=== PATIENT | male | born 1950 | race Caucasian/White ===

== ENCOUNTER 2022-12-19 13:28 | Observation (INO) ==
--- NOTE | 2022-12-19 13:43 | EKG ---
Test Reason : chest pain Blood Pressure : */* mmHG Vent. Rate : 57 BPM Atrial Rate : 57 BPM P-R Int : 146 ms QRS Dur : 90 ms QT Int : 442 ms P-R-T Axes : 17 13 47 degrees QTc Int : 430 ms Sinus bradycardia Otherwise normal ECG No previous ECGs available Confirmed by Dontrell Mendoza ([id number]) on 12/20/2022 8:35:03 AM Referred By: Confirmed By: Dontrell Mendoza
--- NOTE | 2022-12-19 14:16 | DR.CP ---
HPI Time Seen Time Seen by Provider: 12/19/22 14:15 PCP Primary Care Physician: LADONNA Complaint Chief Complaint Doctor Comments: RUQ PAIN WITH NAUSEA STARTING 7 HOURS AGO. Chief Complaint:: PT C/O OF RUQ PAIN THAT RADIATES AROUND TO HIS ABD STATES IT COMES AND GOES AND HE HAS SOME NAUSEOUS WITH IT. PT DENIES VOMITING OR DIARRHEA Self Treatment fo Chief Complaint: ZOFRAN COVID-19 Coronavirus risk:travel/contact w/high risk person: No Has patient experienced Coronavirus symptoms: No Source History Provided: Patient Mode of Arrival Mode of Arrival: Ambulatory Timing Onset of Chief Complaint: 12/18/22 Location Chest Pain Radiation Location: None Associated Signs and Symptoms Associated Signs and Symptoms: Abdominal Pain PMH PMH Past Medical History: Yes Past Medical History: Diabetes Past Medical History Comment: CHOLESTEROL Past Surgical History: Yes Surgical History: Angioplasty/Stents and CABG/Valve Surgery Family History History of Family Medical Conditions: Yes Family Medical History: Diabetes Mellitus Social History Does patient currently use any type of tobacco product: No Have you used tobacco products in the last 12 months: No Type of Tobacco Use: None Does any household member use tobacco: No Alcohol Use: None Do you use any recreational Drugs:: No Lives With: Spouse Lives Where: Home Travel Risk Coronavirus risk:travel/contact w/high risk person: No Has patient experienced Coronavirus symptoms: No Infectious screening In the last 2 months have you had wt loss of >10#?: NO Have you had fever, night sweats or hemotysis?: No Have you traveled outside the country in the last 6 months?: No Isolation: Standard ROS Review of Systems Constitutional: Other (RUQ PAIN WITH) Eyes: No Symptoms Reported ENTM: No Symptoms Reported Respiratoy: No Symptoms Reported Cardiovascular: No Symptoms Reported Gastrointestinal/Abdominal: Abdominal Pain (RUQ) and Nausea Genitourinary: No Symptoms Reported Neurological: No Symptoms Reported Musculoskeletal: No Symptoms Reported Integumentary: No Symptoms Reported Hematologic/Lymphatic: No Symptoms Reported Endocrine: No Symptoms Reported Psychiatric: No Symptoms Reported PE Vitals Vitals: Temperature 98.6 F Pulse Rate 64 Respiratory Rate 20 Blood Pressure 147/64 O2 Sat by Pulse Oximetry 96 General Limitations: No Limitations General Appearance: Alert and In Distress (MODERATE DISTRESS) Head Head Exam: Normal Inspection and Atraumatic Eyes Eye exam: Normal Appearance, PERRL and EOMI ENT ENT Exam: Normal Exam, Normal Oropharynx and Normal External Ear Exam Chest Chest Inspection: Normal Inspection Respiratory Respiratory Exam: Normal Lung Sounds Bilat Respiratory Exam: Bilateral: Clear to Auscultation Cardiovascular Cardiovascular Exam: Regular Rate and Normal Rhythm Abdominal Exam Abdominal Exam: Normal Bowel Sounds and Tenderness (RUQ) Abdominal Tenderness: RUQ Extremities Extremities Exam: Normal Inspection Back Back Exam: Normal Inspection Neurologic Neurological Exam: Alert, Oriented X3 and CN II-XII Intact Psychiatric Psychiatric Exam: Normal Affect, Normal Mood and Depressed Skin Skin Exam: Warm, Dry and Intact MDM Differential Diagnosis Differential Diagnosis: Cholelithasis (CHOLECYSTITIS) COURSE Treatment Treatment: PATIENT WAS GIVEN BOLUS OF NACL AND ZOFRAN 4MG IV AND DEMEROL 50MG IV FOR PAIN. THE ULTRASOUND OF RUQ SHOWED CHOLELITHIASIS AND CHOLECYSTITIS, WALL THICKENING AND POSITIVE MURPHYU SIGN. THE PATIENT WAS TOLD THE RESULTS OF THE FINDINGS ,. CARDIAC HAIDER WAS NEGATIVE.SPOKE TO DR DRAKE AT 1610 AND HE WILL ADMIT THE PATIENT FOR SURGERY TOMORROW. UTILIZATION REVIEW STATED TO REFER TO OBSERVATION. ROR Labs Reviewed Laboratory Results Reviewed?: Yes Result Diagrams: 12/19/22 13:49 12/19/22 13:49 Laboratory: WBC 9.9 X10^3/uL (3.6-10.0) 12/19/22 13:49 RBC 4.62 X10^6/uL (4.7-6.0) L 12/19/22 13:49 Hgb 11.4 g/dL (13.5-18.0) L 12/19/22 13:49 Hct 35.4 % (42.0-54.0) L 12/19/22 13:49 MCV 76.6 fL (80.0-100.0) L 12/19/22 13:49 MCH 24.6 pg (27.0-34.0) L 12/19/22 13:49 MCHC 32.1 g/dL (33.0-35.0) L 12/19/22 13:49 RDW 17.7 % (11.6-16.5) H 12/19/22 13:49 Plt Count 237 X10^3/uL (150.0-450.0) 12/19/22 13:49 MPV 7.0 fL (7.4-11.0) L 12/19/22 13:49 Neut % (Auto) 80.6 % (42.0-75.0) H 12/19/22 13:49 Lymph % (Auto) 13.9 % (21.0-51.0) L 12/19/22 13:49 Traverse % (Auto) 4.9 % (0.0-13.0) 12/19/22 13:49 Eos % (Auto) 0.3 % (0.9-2.9) L 12/19/22 13:49 Baso % (Auto) 0.3 % (0.2-1.0) 12/19/22 13:49 Neut # (Auto) 8.0 x10^3/uL (2.2-4.8) H 12/19/22 13:49 Lymph # (Auto) 1.4 X10^3/uL (1.3-2.9) 12/19/22 13:49 Traverse # (Auto) 0.5 x10^3/uL (0.3-0.8) 12/19/22 13:49 Eos # (Auto) 0.0 x10^3/uL (0.0-0.2) 12/19/22 13:49 Baso # (Auto) 0.0 X10^3/uL (0.0-0.1) 12/19/22 13:49 Absolute Nucleated RBC 0.1 /100WBC 12/19/22 13:49 Sodium 132 mmol/L (136-145) L 12/19/22 13:49 Corrected Sodium 133 mmol/L (136-145) L 12/19/22 13:49 Potassium 4.0 mmol/L (3.5-5.1) 12/19/22 13:49 Chloride 97 mmol/L (98-107) L 12/19/22 13:49 Carbon Dioxide 26.1 mmol/L (21-32) 12/19/22 13:49 BUN 15 mg/dL (7-18) 12/19/22 13:49 Creatinine 0.67 mg/dL (0.70-1.30) L 12/19/22 13:49 Est GFR (MDRD) Af Amer > 60 (>60) 12/19/22 13:49 Est GFR (MDRD) Non-Af > 60 (>60) 12/19/22 13:49 Glucose 143 mg/dL (65-99) H 12/19/22 13:49 Calcium 8.4 mg/dL (8.5-10.1) L 12/19/22 13:49 Corrected Calcium TNP 12/19/22 13:49 Total Bilirubin 0.30 mg/dL (0.2-1.0) 12/19/22 13:49 AST 29 Units/L (15-37) 12/19/22 13:49 ALT 47 Units/L (12-78) 12/19/22 13:49 Alkaline Phosphatase 63 Units/L (46-116) 12/19/22 13:49 Creatine Kinase 76 Units/L (39-308) 12/19/22 13:49 Troponin I High Sens 4.8 ng/L (4.0-60.0) 12/19/22 13:49 Total Protein 7.1 g/dL (6.4-8.2) 12/19/22 13:49 Albumin 4.1 g/dL (3.4-5.0) 12/19/22 13:49 Globulin 3.0 g/dL (2.5-4.5) 12/19/22 13:49 Albumin/Globulin Ratio 1.4 Ratio (1.1-2.1) 12/19/22 13:49 Amylase 65 Units/L (25-115) 12/19/22 13:49 Lipase 197 Units/L (73-393) 12/19/22 13:49 Opioid Opioid Risk Tool Age (John box if 16-45): No History of Preadolescent Sexual Abuse: No Total: 0 Total Score Risk Category: Low Risk Copyright: Sergio HARDWICK predicting aberrant behaviors Discharge Plan Diagnosis Discharge Problem: Acute cholecystitis Discharge Plan Patient Disposition: HOME, SELF-CARE Condition: Stable Prescriptions: No Action atorvastatin 40 mg Tablet 40 mg PO HS metformin 500 mg Tablet 500 mg PO BID clopidogrel 75 mg tablet 1 tab PO QDAY omeprazole 40 mg Capsule,Delayed Release(Dr/Ec) 40 mg PO DAILY aspirin [Aspir-81] 81 mg Tablet,Delayed Release (Dr/Ec) 81 mg PO DAILY primidone 250 mg tablet 1.5 tab PO BID metoprolol tartrate 50 mg tablet 0.5 tab PO QDAY cyclobenzaprine 5 mg tablet 1 tab PO TID PRN topiramate 50 mg Tablet 50 mg PO BID fenofibrate 160 mg Tablet 160 mg PO DAILY [id number]-[id number]-dha-fish oil-flax-E [id number] el-fa-xg-unit Capsule 180 cap PO BID Otezla 30 mg Tablet 30 mg PO BID Health Concerns: Post Hospitalization: new medications and changes needed to prevent readmission or further decline. Pt educated and given instructions on all concerns. Plan of Treatment: Continue with present treatment and follow up plan. Pt is to keep follow up appointment as instructed and take medications as ordered. Orders to Discharge Patient Discharge Orders: Discharge (Routine); Ordered 12/19/22 Ordered By: Mannie Kevin Transfer (Routine); Ordered 12/19/22 Ordered By: Mannie Kevin Follow ups/Referrals Follow ups/Referrals: BEATRIZ DOUGHERTY [Primary Care Provider] - 3 days
[2022-12-19] MEDS ORDERED: NS IRRIG 3000 ML + EPI 1 MG IR ONE (14:18)
[2022-12-19 14:23] LABS: BASOPHILS % (AUTO) 0.3 % (0.2-1.0); EOSINOPHILS % (AUTO) 0.3 % (0.9-2.9); HEMATOCRIT 35.4 % (42.0-54.0); HEMOGLOBIN 11.4 g/dL (13.5-18.0); LYMPHOCYTES # (AUTO) 1.4 X10^3/uL (1.3-2.9); LYMPHOCYTES % (AUTO) 13.9 % (21.0-51.0); MEAN CORPUSCULAR HEMOGLOBIN 24.6 pg (27.0-34.0); MEAN CORPUSCULAR HGB CONC 32.1 g/dL (33.0-35.0); MEAN CORPUSCULAR VOLUME 76.6 fL (80.0-100.0); MONOCYTES # (AUTO) 0.5 x10^3/uL (0.3-0.8); MONOCYTES % (AUTO) 4.9 % (0.0-13.0); NEUTROPHILS % (AUTO) 80.6 % (42.0-75.0); RED BLOOD COUNT 4.62 X10^6/uL (4.7-6.0); RED CELL DISTRIBUTION WIDTH 17.7 % (11.6-16.5); WHITE BLOOD COUNT 9.9 X10^3/uL (3.6-10.0)
--- NOTE | 2022-12-19 14:31 | RAD ---
HISTORYChest painSTUDYChest AP portableCOMPARISONNoneFINDINGSPatient is status post median sternotomy and CABG. Heart size is normal. Jacklyn are normal. Lung green are clear. No pleural effusions are identified. Bony thorax is unremarkable.IMPRESSIONNo significant abnormality identifiedElectronically signed by: TEQUILA TRINIDAD (Dec 19, 2022 14:29:54)
[2022-12-19 14:34] LABS: AMYLASE 65 Units/L (25-115); LIPASE 197 Units/L (73-393)
--- NOTE | 2022-12-19 15:18 | US ---
HISTORYCP, RUQ PAINSTUDYGALL BLADDERCOMPARISONNoneTECHNIQUEGallbladde r ultrasound.FINDINGSLiver appears mildly echogenic. The right lobe of liver measures up to 14.5 cm. The portal and hepatic veins are patent with appropriate flow directionality. The gallbladder demonstrates multiple cholelithiasis, wall thickening measuring just under 4 mm, and positive Vinson sign according to technologist note. Common duct is normal at 4 mm. The right kidney measures 10.6 x 5.5 x 5.5 cm. No obvious renal mass, stone, or hydronephrosis. IVC appears patent proximally. Visualized pancreas appears normal.IMPRESSIONCholelithiasis, wall thickening, and positive Vinson sign is consistent with acute cholecystitis in the appropriate clinical setting. Consider HIDA scan for further evaluation as clinically warranted.Echogenic liver consistent with parenchymal disease such as steatosis.Electronically signed by: Adam Tristan (Dec 19, 2022 15:17:34)
[2022-12-19] MEDS ORDERED: DEMEROL INJ IVP ONE (15:30)
[2022-12-19] MEDS ORDERED: ZOFRAN INJ 4 MG VIAL IVP ONE (15:30)
[2022-12-19] MEDS ORDERED: DEMEROL INJ ONE (15:32)
[2022-12-19] MEDS ORDERED: ZOFRAN INJ 4 MG VIAL ONE (15:33)
[2022-12-19 15:46] LABS: ALANINE AMINOTRANSFERASE 47 Units/L (12-78); ALBUMIN 4.1 g/dL (3.4-5.0); ALKALINE PHOSPHATASE 63 Units/L (46-116); ASPARTATE AMINO TRANSFERASE 29 Units/L (15-37); BLOOD UREA NITROGEN 15 mg/dL (7-18); CALCIUM 8.4 mg/dL (8.5-10.1); CARBON DIOXIDE 26.1 mmol/L (21-32); CHLORIDE 97 mmol/L (98-107); COR NA(FOR HYPERGLY) 133 mmol/L (136-145); CREATINE KINASE 76 Units/L (39-308); CREATININE 0.67 mg/dL (0.70-1.30); SODIUM 132 mmol/L (136-145); TOTAL PROTEIN 7.1 g/dL (6.4-8.2); eGFR NON BLACK RACES > 60 (>60)
[2022-12-19 18:53] VITALS: BMI 11.6
[2022-12-19] MEDS ORDERED: LOPRESSOR TAB 25 MG PO ONE (22:54)
[2022-12-19] MEDS ORDERED: FLEXERIL TAB 10 MG PO PRN (22:54)
[2022-12-19] MEDS ORDERED: NovoLIN R (or HumuLIN R) SC PRN (22:54)
[2022-12-19] MEDS: LR 1,000 ML IV 1,000 ML IV SCH (23:37)
--- NOTE | 2022-12-19 23:37 | DR.H&P ---
H&P History & Physical for Day of: H&P Date: 12/19/22 Chief Complaint Chief Complaint: 72 yo male with 1 day history of RUQ pain radiating into his back. Evaluated in the ER and ultrasound consistent with cholelithiasis and acute cholecystitis with gallbladder wall thickening, Allergies Allergies Allergy/AdvReac Type Severity Reaction Status Date / Time No Known Allergies Allergy Verified 12/19/22 13:43 History of Present Illness History of Present Illness: See above. History of CABG many years ago and had 2 coronary stents placed 2016 for shortness of breath. Hx of diabetes . Followed by cardiology and has recent stress test reported as negative . Denies shortness of breath or chest pain Past Medical History Past Medical History: Coronary Artery Disease ( see H&P above ), Diabetes and GERD Additional Medical History: hypercholesterolemia Past Surgical History Surgical History: Angioplasty/Stents and CABG/Valve Surgery Family History Family Medical History: Diabetes Mellitus, MA and Heart Failure Social History Does patient currently use any type of tobacco product: No Have you used tobacco products in the last 12 months: No Type of Tobacco Use: None Does any household member use tobacco: No Alcohol Use: None Drug Use: None Medications Home Medications: No Known Allergies Allergy (Verified 12/19/22 13:43) CONTINUE taking the following medications apremilast 30 mg tablet (Otezla) 30 mg PO BID 12/19/22 [History] aspirin 81 mg tablet,delayed release 81 mg PO DAILY 12/19/22 [History] atorvastatin 40 mg tablet 40 mg PO HS 12/19/22 [History] clopidogrel 75 mg tablet 1 tab PO QDAY 12/19/22 [History] cyclobenzaprine 5 mg tablet 1 tab PO TID PRN 12/19/22 [History] fenofibrate 160 mg tablet 160 mg PO DAILY 12/19/22 [History] metformin 500 mg tablet 500 mg PO BID 12/19/22 [History] metoprolol tartrate 50 mg tablet 0.5 tab PO QDAY 12/19/22 [History] omeg3-epa 150 mg-dha 100 mg-fish oil-flaxseed oil 333 mg-E 61 unit cap 180 cap PO BID 12/19/22 [History] omeprazole 40 mg capsule,delayed release 40 mg PO DAILY 12/19/22 [History] primidone 250 mg tablet 1.5 tab PO BID 12/19/22 [History] topiramate 50 mg tablet 50 mg PO BID 12/19/22 [History] Labs Result Diagrams: 12/19/22 13:49 12/19/22 13:49 Labs: Laboratory WBC 9.9 X10^3/uL (3.6-10.0) 12/19/22 13:49 RBC 4.62 X10^6/uL (4.7-6.0) L 12/19/22 13:49 Hgb 11.4 g/dL (13.5-18.0) L 12/19/22 13:49 Hct 35.4 % (42.0-54.0) L 12/19/22 13:49 MCV 76.6 fL (80.0-100.0) L 12/19/22 13:49 MCH 24.6 pg (27.0-34.0) L 12/19/22 13:49 MCHC 32.1 g/dL (33.0-35.0) L 12/19/22 13:49 RDW 17.7 % (11.6-16.5) H 12/19/22 13:49 Plt Count 237 X10^3/uL (150.0-450.0) 12/19/22 13:49 MPV 7.0 fL (7.4-11.0) L 12/19/22 13:49 Neut % (Auto) 80.6 % (42.0-75.0) H 12/19/22 13:49 Lymph % (Auto) 13.9 % (21.0-51.0) L 12/19/22 13:49 Dare % (Auto) 4.9 % (0.0-13.0) 12/19/22 13:49 Eos % (Auto) 0.3 % (0.9-2.9) L 12/19/22 13:49 Baso % (Auto) 0.3 % (0.2-1.0) 12/19/22 13:49 Neut # (Auto) 8.0 x10^3/uL (2.2-4.8) H 12/19/22 13:49 Lymph # (Auto) 1.4 X10^3/uL (1.3-2.9) 12/19/22 13:49 Dare # (Auto) 0.5 x10^3/uL (0.3-0.8) 12/19/22 13:49 Eos # (Auto) 0.0 x10^3/uL (0.0-0.2) 12/19/22 13:49 Baso # (Auto) 0.0 X10^3/uL (0.0-0.1) 12/19/22 13:49 Absolute Nucleated RBC 0.1 /100WBC 12/19/22 13:49 Sodium 132 mmol/L (136-145) L 12/19/22 13:49 Corrected Sodium 133 mmol/L (136-145) L 12/19/22 13:49 Potassium 4.0 mmol/L (3.5-5.1) 12/19/22 13:49 Chloride 97 mmol/L (98-107) L 12/19/22 13:49 Carbon Dioxide 26.1 mmol/L (21-32) 12/19/22 13:49 BUN 15 mg/dL (7-18) 12/19/22 13:49 Creatinine 0.67 mg/dL (0.70-1.30) L 12/19/22 13:49 Est GFR (MDRD) Af Amer > 60 (>60) 12/19/22 13:49 Est GFR (MDRD) Non-Af > 60 (>60) 12/19/22 13:49 Glucose 143 mg/dL (65-99) H 12/19/22 13:49 POC Glucose (mg/dL) 108 mg/dL (65-99) H 12/19/22 19:33 Calcium 8.4 mg/dL (8.5-10.1) L 12/19/22 13:49 Corrected Calcium TNP 12/19/22 13:49 Total Bilirubin 0.30 mg/dL (0.2-1.0) 12/19/22 13:49 AST 29 Units/L (15-37) 12/19/22 13:49 ALT 47 Units/L (12-78) 12/19/22 13:49 Alkaline Phosphatase 63 Units/L (46-116) 12/19/22 13:49 Creatine Kinase 76 Units/L (39-308) 12/19/22 13:49 Troponin I High Sens 4.8 ng/L (4.0-60.0) 12/19/22 13:49 Total Protein 7.1 g/dL (6.4-8.2) 12/19/22 13:49 Albumin 4.1 g/dL (3.4-5.0) 12/19/22 13:49 Globulin 3.0 g/dL (2.5-4.5) 12/19/22 13:49 Albumin/Globulin Ratio 1.4 Ratio (1.1-2.1) 12/19/22 13:49 Amylase 65 Units/L (25-115) 12/19/22 13:49 Lipase 197 Units/L (73-393) 12/19/22 13:49 Review of Systems Constitutional: See HPI Eyes: No Symptoms Reported ENT: No Symptoms Reported Respiratory: No Symptoms Reported Cardiovascular: No Symptoms Reported Gastrointestinal: See HPI Genitourinary: No Symptoms Reported Musculoskeletal: No Symptoms Reported Skin: No Symptoms Reported Neurological: No Symptoms Reported Physical Exam Vital Signs: Temperature 98.7 F Pulse Rate [Left Radial] 64 Pulse Rate 57 Respiratory Rate 18 Blood Pressure [Left Arm] 136/63 Blood Pressure 147/64 O2 Sat by Pulse Oximetry 97 Oriented: Normal, Time, Person and Place Eyes: Normal Ear: Normal Nose: Normal Throat: Normal Respiratory: Clear Throughout Cardiovascular: Normal and Other (denies chest pain) : Normal Auscultation: Bowel Sounds: Normal Palpation: Normal Tenderness: RUQ (mild) Skin: Normal Musculoskeletal: Normal Psychiatric: Normal Mood Description: Calm Affect: Normal Speech Pattern: Clear Assessment/Plan (1) Acute cholecystitis: Status: Acute Plan: IV antibiotics, plan laparoscopic cholecystectomy in AM. Risks and benefits discussed , including risk of bleeding, infection and possible common bile duct injury( 1 in 1999 in my hands) Small possibility of converting to open procedure discussed with the patient . Patient agrees to proceed. (2) Diabetes 1.5, managed as type 2: Status: Acute Plan: usual medications (3) Hypercholesteremia: Status: Acute Plan: usual medications (4) GE reflux: Narrative Support Text: home treatment Status: Acute
[2022-12-19] MEDS: LIPITOR TAB 40 MG PO SCH (23:38)
[2022-12-19] MEDS: TOPAMAX PO SCH (23:38)
[2022-12-19] MEDS: MYSOLINE PO SCH (23:38)
[2022-12-20] MEDS ORDERED: LEVAQUIN PREMIX IV 750 MG 750 MG/150 ML BAG IV ONE (01:00)
[2022-12-20 06:27] LABS: BASOPHILS % (AUTO) 0.3 % (0.2-1.0); EOSINOPHILS # (AUTO) 0.1 x10^3/uL (0.0-0.2); HEMATOCRIT 34.9 % (42.0-54.0); HEMOGLOBIN 11.3 g/dL (13.5-18.0); LYMPHOCYTES # (AUTO) 1.6 X10^3/uL (1.3-2.9); LYMPHOCYTES % (AUTO) 19.7 % (21.0-51.0); MEAN CORPUSCULAR HEMOGLOBIN 24.6 pg (27.0-34.0); MEAN CORPUSCULAR HGB CONC 32.3 g/dL (33.0-35.0); MEAN CORPUSCULAR VOLUME 76.2 fL (80.0-100.0); MEAN PLATELET VOLUME 7.1 fL (7.4-11.0); MONOCYTES # (AUTO) 0.8 x10^3/uL (0.3-0.8); MONOCYTES % (AUTO) 9.7 % (0.0-13.0); NEUTROPHILS # (AUTO) 5.5 x10^3/uL (2.2-4.8); NEUTROPHILS % (AUTO) 69.3 % (42.0-75.0); RED BLOOD COUNT 4.58 X10^6/uL (4.7-6.0); RED CELL DISTRIBUTION WIDTH 17.7 % (11.6-16.5)
[2022-12-20 06:53] LABS: ALANINE AMINOTRANSFERASE 40 Units/L (12-78); ALBUMIN 3.6 g/dL (3.4-5.0); ALKALINE PHOSPHATASE 57 Units/L (46-116); ASPARTATE AMINO TRANSFERASE 25 Units/L (15-37); BLOOD UREA NITROGEN 11 mg/dL (7-18); CALCIUM 8.4 mg/dL (8.5-10.1); CHLORIDE 102 mmol/L (98-107); COR NA(FOR HYPERGLY) 136 mmol/L (136-145); CREATININE 0.61 mg/dL (0.70-1.30); SODIUM 136 mmol/L (136-145); TOTAL PROTEIN 6.6 g/dL (6.4-8.2); eGFR NON BLACK RACES > 60 (>60)
[2022-12-20] MEDS: TOPAMAX PO SCH ×2 (08:09→20:46)
[2022-12-20] MEDS: MYSOLINE PO SCH ×2 (08:09→20:45)
[2022-12-20] MEDS ORDERED: LEVAQUIN PREMIX IV 500 MG 500 MG/100 ML BAG IV SCH (09:00)
[2022-12-20] MEDS ORDERED: BACTROBAN TOPICAL OINT ONE (09:16)
[2022-12-20] MEDS ORDERED: ANCEF VIAL 1 GRAM ONE (09:26)
[2022-12-20] MEDS ORDERED: NS 1,000 ML IV 1,000 ML ONE (09:26)
[2022-12-20] MEDS ORDERED: NS 100 ML IV 100 ML ONE (09:27)
[2022-12-20] MEDS ORDERED: MARCAINE 0.25% INJ ONE (09:54)
[2022-12-20] MEDS ORDERED: BARHEMSYS INJ IVP PRN (09:56)
[2022-12-20] MEDS ORDERED: ZOFRAN INJ 4 MG VIAL IVP PRN (09:56)
[2022-12-20] MEDS ORDERED: BENADRYL INJ 50 MG VIAL IVP PRN (09:56)
[2022-12-20] MEDS ORDERED: MAGNESIUM SULFATE 50% INJ VIAL ONE (10:12)
[2022-12-20] MEDS ORDERED: DIPRIVAN VIAL 20 ML ONE (10:12)
[2022-12-20] MEDS ORDERED: NEO-SYNEPHRINE INJ ONE (10:12)
[2022-12-20] MEDS ORDERED: ZEMURON 100 MG VIAL ONE (10:12)
[2022-12-20] MEDS ORDERED: QUELICIN (OR ANECTINE) ONE (10:12)
[2022-12-20] MEDS ORDERED: FENTANYL VIAL INJ 100 mcg ONE (10:15)
[2022-12-20] MEDS ORDERED: KETAMINE HCL ONE (10:23)
[2022-12-20] MEDS ORDERED: SUPRANE ONE (10:23)
[2022-12-20] MEDS ORDERED: BRIDION ONE (11:01)
--- NOTE | 2022-12-20 11:21 | OR.IMMED ---
IMMEDIATE POST-OP NOTE Immediate Post-Op Note Pre-Op Diagnosis: cholelithiasis and acute cholecystitis Post-Op Diagnosis: kristie Procedure: laparoscopic cholecystectomy Description of Procedure: see operative summary Surgeon/[employer] Associate: Maricruz Findings: as above Specimens Removed: gallbladder Estimated Blood Loss: < 50 cc Drains: Pranav Ravi (#10) Complications: none Post Hospital Plans and Medications: to PACU then floor , resume diet, D/C IV Levaquin, begin po Cipro BID
[2022-12-20] MEDS ORDERED: DILAUDID INJ ONE (11:38)
[2022-12-20] MEDS: DILAUDID INJ IVP PRN ×4 (11:39→12:13)
[2022-12-20] MEDS: PROTONIX TAB 40 MG PO SCH (12:31)
[2022-12-20] MEDS: TRICOR TAB 160 MG PO SCH (12:32)
[2022-12-20] MEDS: PERCOCET TAB 5/325 MG PO PRN ×3 (14:20→22:43)
[2022-12-20] MEDS ORDERED: DILAUDID INJ IVP ONE (16:10)
[2022-12-20] MEDS: LR 1,000 ML IV 1,000 ML IV SCH (16:35)
[2022-12-20] MEDS ORDERED: GLUCOPHAGE ONE (17:23)
[2022-12-20] MEDS: GLUCOPHAGE PO SCH (17:42)
--- NOTE | 2022-12-20 19:39 | DR.OPNOTE ---
OP NOTE Pre-Op Diagnosis: cholelithiasis and acute cholecystitis Post-Op Diagnosis: same Procedure Date Date Of Procedure: 12/20/22 Procedure: PROCEDURE: LAPAROSCOPIC CHOLECYSTECTOMY NARRARTIVE : Patient was taken to the operative suite and placed in the supine position. General endotracheal anesthesia induced . The entire abdomen prepped and draped in sterile fashion. Time out for the procedure obtained. 3 cm curvilinear incision made below the umbilicus in the midline and dissection carried down to the mid line fascia which was opened with a 15 knife blade after placing holding pictures of 0 Vicryl on either side of the mid line fascia . The peritoneum opened with Metzenbaum scissors. The abdominal cavity entered and Fatimah cannula placed and secured with the holding sutures after inflating the distal bulb. Abdomen insufflated to 15 mm of mercury with carbon dioxide. 5 mm incisions made times two to the right costal margin. Five mm trocars placed though both of these under direct vision. A 5 mm trocar was placed in the epigastrium . The gallbladder was inflamed and edematous . It was decompressed with a needle. The gallbladder was grasped at the fundus and the infundibulum and dissection carried out in Calot's triangle . We defined both the cystic duct and cystic artery , i.e. the critical view of safety . Both were clipped proximally and distally and divided . The gallbladder peritoneum was incised with electrocautery removing gallbladder from the liver bed. Gallbladder placed in the specimen bag and brought out through the umbilical incision site. Umbilical trocar replaced . The abdomen irrigated and suctioned free. Surgicel placed in the liver bed. # 10 flat Pranav-Ravi drain placed through the right lateral most 5 mm trocar site and into Lopez's pouch . Drain secured to the skin with a 2-0 silk suture ligature . The fascia of the initial incision closed with interrupted 0 Vicryl sutures . A total of 20 ccs of 0.5% Marcaine distributed between 4 laparoscopic incisions and Steri strips applied. Patient taken to PACU room in good condition after extubation. Type of Anesthesia: General Anesthetic w/ETT Findings: as above , inflammed and edematous gallbladder Specimen/Pathology: gallbladder Type of Fluids Used:: Lactated Ringers EBL: < 50 cc Complications:: none Needle/Sponge Count:: correct Disposition/Condition: Pt. tolerated procedure without difficulty. Extubated in the OR and taken to PACU in stable condition.
[2022-12-20] MEDS: LIPITOR TAB 40 MG PO SCH (20:45)
[2022-12-20] MEDS: CIPRO TAB 500 MG PO SCH (20:45)
[2022-12-20] MEDS ORDERED: RESTORIL CAP 15 MG PO PRN (22:44)
[2022-12-21] MEDS: LR 1,000 ML IV 1,000 ML IV SCH ×3 (01:14→15:13)
[2022-12-21] MEDS: PERCOCET TAB 5/325 MG PO PRN ×4 (03:50→16:00)
[2022-12-21] MEDS ORDERED: GLUCOPHAGE ONE (05:44)
[2022-12-21] MEDS: GLUCOPHAGE PO SCH (06:01)
[2022-12-21 06:48] LABS: SODIUM 130 mmol/L (136-145); eGFR NON BLACK RACES > 60 (>60)
[2022-12-21 07:25] LABS: BASOPHILS # (AUTO) 0.2 X10^3/uL (0.0-0.1); BASOPHILS % (AUTO) 2.4 % (0.2-1.0); EOSINOPHILS # (AUTO) 0.1 x10^3/uL (0.0-0.2); EOSINOPHILS % (AUTO) 1.2 % (0.9-2.9); HEMATOCRIT 32.9 % (42.0-54.0); HEMOGLOBIN 10.4 g/dL (13.5-18.0); LYMPHOCYTES % (AUTO) 11.8 % (21.0-51.0); MEAN CORPUSCULAR HEMOGLOBIN 24.6 pg (27.0-34.0); MEAN CORPUSCULAR HGB CONC 31.7 g/dL (33.0-35.0); MEAN CORPUSCULAR VOLUME 77.7 fL (80.0-100.0); MEAN PLATELET VOLUME 6.9 fL (7.4-11.0); MONOCYTES # (AUTO) 0.7 x10^3/uL (0.3-0.8); MONOCYTES % (AUTO) 7.9 % (0.0-13.0); NEUTROPHILS # (AUTO) 6.8 x10^3/uL (2.2-4.8); NEUTROPHILS % (AUTO) 76.7 % (42.0-75.0); RED BLOOD COUNT 4.24 X10^6/uL (4.7-6.0); RED CELL DISTRIBUTION WIDTH 17.4 % (11.6-16.5); WHITE BLOOD COUNT 8.9 X10^3/uL (3.6-10.0)
[2022-12-21 07:33] LABS: ALANINE AMINOTRANSFERASE 162 Units/L (12-78); ALBUMIN 3.5 g/dL (3.4-5.0); ALKALINE PHOSPHATASE 67 Units/L (46-116); ASPARTATE AMINO TRANSFERASE 174 Units/L (15-37); BLOOD UREA NITROGEN 7 mg/dL (7-18); CALCIUM 8.1 mg/dL (8.5-10.1); CARBON DIOXIDE 28.3 mmol/L (21-32); CHLORIDE 95 mmol/L (98-107); COR NA(FOR HYPERGLY) 131 mmol/L (136-145); CREATININE 0.74 mg/dL (0.70-1.30); TOTAL PROTEIN 6.3 g/dL (6.4-8.2)
[2022-12-21] MEDS: MYSOLINE PO SCH (08:12)
[2022-12-21] MEDS: CIPRO TAB 500 MG PO SCH (08:12)
[2022-12-21] MEDS: PROTONIX TAB 40 MG PO SCH (08:13)
[2022-12-21] MEDS: TRICOR TAB 160 MG PO SCH (08:13)
[2022-12-21] MEDS: TOPAMAX PO SCH (08:13)
[2022-12-21] MEDS ORDERED: LEVAQUIN PREMIX IV 500 MG 500 MG/100 ML BAG IV SCH (09:00)
[2022-12-21 12:34] VITALS: BP 131/61
--- NOTE | 2022-12-21 16:35 | W.DIS.FURT ---
Summary of Discharge Discharge Summary of Date Date of Exam: 12/21/22 Admission Date Date of Admission: 12/19/22 Admission Diagnosis Patient Problems (Updated 12/19/22 @ 23:32 by Noble Alcantara) Acute cholecystitis (Acute) K81.0 Hospital Course: 72 yo male with history of diabetes and CAD , S/P CABG and Coronary stents with recent negative stress test who presented with RUQ pain and ultrasound con sistent with cholelithiasis and acute cholectytitis . He was on IV antibiotics over night and the next AM underwent laparoscopic cholecystectomy for an acutely inflammed gallbladder. He has done well and will be discharged home on his usual medications plus Cipro 500 mg po BID and Perecocet , 5mg , i tablet q 6 Hr PRN pain. He is discharged with a Pranav Ravi drain in place and will see me in the office 12/24/2022. Vital Signs: Vital Signs (72 hours) 12/19/22 13:39 12/19/22 13:39 12/19/22 13:45 Temperature 98.6 F Pulse Rate 59 L 59 L 59 L Pulse Rate [Left Radial] Respiratory Rate 20 33 H 22 Blood Pressure 163/71 Blood Pressure [Left Arm] O2 Sat by Pulse Oximetry 98 97 98 Oxygen Delivery Method Room Air Oxygen Flow Rate 12/19/22 14:00 12/19/22 14:00 12/19/22 14:15 Temperature Pulse Rate 55 L 69 Pulse Rate [Left Radial] Respiratory Rate 24 37 H Blood Pressure 151/72 Blood Pressure [Left Arm] O2 Sat by Pulse Oximetry 95 97 Oxygen Delivery Method Oxygen Flow Rate 12/19/22 14:51 12/19/22 15:00 12/19/22 15:01 Temperature Pulse Rate 66 57 L Pulse Rate [Left Radial] Respiratory Rate 25 H 21 Blood Pressure 151/69 Blood Pressure [Left Arm] O2 Sat by Pulse Oximetry 96 97 Oxygen Delivery Method Oxygen Flow Rate 12/19/22 15:01 12/19/22 15:15 12/19/22 15:30 Temperature Pulse Rate 56 L 59 L Pulse Rate [Left Radial] Respiratory Rate 21 20 Blood Pressure 140/64 Blood Pressure [Left Arm] O2 Sat by Pulse Oximetry 98 98 Oxygen Delivery Method Oxygen Flow Rate 12/19/22 15:30 12/19/22 15:43 12/19/22 15:45 Temperature Pulse Rate 59 L 68 Pulse Rate [Left Radial] Respiratory Rate 21 17 22 Blood Pressure Blood Pressure [Left Arm] O2 Sat by Pulse Oximetry 98 93 L Oxygen Delivery Method Oxygen Flow Rate 12/19/22 16:00 12/19/22 16:00 12/19/22 16:15 Temperature Pulse Rate 61 59 L Pulse Rate [Left Radial] Respiratory Rate 30 H 17 Blood Pressure 123/58 Blood Pressure [Left Arm] O2 Sat by Pulse Oximetry 93 L 93 L Oxygen Delivery Method Oxygen Flow Rate 12/19/22 16:30 12/19/22 16:30 12/19/22 16:45 Temperature Pulse Rate 58 L 62 Pulse Rate [Left Radial] Respiratory Rate 18 20 Blood Pressure 123/61 Blood Pressure [Left Arm] O2 Sat by Pulse Oximetry 95 96 Oxygen Delivery Method Oxygen Flow Rate 12/19/22 17:00 12/19/22 17:01 12/19/22 17:01 Temperature Pulse Rate 57 L 59 L Pulse Rate [Left Radial] Respiratory Rate 17 20 Blood Pressure 160/65 Blood Pressure [Left Arm] O2 Sat by Pulse Oximetry 95 95 Oxygen Delivery Method Oxygen Flow Rate 12/19/22 17:15 12/19/22 17:30 12/19/22 17:31 Temperature Pulse Rate 66 61 Pulse Rate [Left Radial] Respiratory Rate 34 H 17 Blood Pressure 147/64 Blood Pressure [Left Arm] O2 Sat by Pulse Oximetry 97 96 Oxygen Delivery Method Oxygen Flow Rate 12/19/22 17:31 12/19/22 17:45 12/19/22 18:10 Temperature 98.8 F Pulse Rate 64 57 L Pulse Rate [Left Radial] 62 Respiratory Rate 20 23 18 Blood Pressure Blood Pressure [Left Arm] 133/65 O2 Sat by Pulse Oximetry 96 97 98 Oxygen Delivery Method Room Air Oxygen Flow Rate 12/19/22 18:06 12/19/22 19:00 12/19/22 20:00 Temperature 98.7 F Pulse Rate Pulse Rate [Left Radial] 64 Respiratory Rate 18 Blood Pressure Blood Pressure [Left Arm] 136/63 O2 Sat by Pulse Oximetry 97 Oxygen Delivery Method Room Air Room Air Oxygen Flow Rate 12/20/22 00:00 12/20/22 04:00 12/20/22 07:00 Temperature 98.9 F 98.6 F Pulse Rate Pulse Rate [Left Radial] 79 65 Respiratory Rate 20 20 Blood Pressure Blood Pressure [Left Arm] 150/72 118/58 O2 Sat by Pulse Oximetry 94 L 91 L Oxygen Delivery Method Room Air Oxygen Flow Rate 12/20/22 08:00 12/20/22 11:39 12/20/22 11:28 Temperature 98.7 F 98.3 F Pulse Rate 94 H Pulse Rate [Left Radial] 66 Respiratory Rate 20 16 16 Blood Pressure 148/69 Blood Pressure [Left Arm] 121/67 O2 Sat by Pulse Oximetry 96 99 Oxygen Delivery Method Room Air Aerosol Face Tent Oxygen Flow Rate 12/20/22 11:33 12/20/22 11:48 12/20/22 11:38 Temperature Pulse Rate 76 74 74 Pulse Rate [Left Radial] Respiratory Rate 16 17 16 Blood Pressure 147/67 165/76 167/74 Blood Pressure [Left Arm] O2 Sat by Pulse Oximetry 100 96 100 Oxygen Delivery Method Aerosol Face Tent Nasal Cannula Aerosol Face Tent Oxygen Flow Rate 12/20/22 11:43 12/20/22 11:53 12/20/22 11:59 Temperature Pulse Rate 76 76 Pulse Rate [Left Radial] Respiratory Rate 18 18 17 Blood Pressure 158/73 161/77 Blood Pressure [Left Arm] O2 Sat by Pulse Oximetry 100 96 Oxygen Delivery Method Aerosol Face Tent Nasal Cannula Oxygen Flow Rate 12/20/22 11:58 12/20/22 12:04 12/20/22 12:13 Temperature Pulse Rate 73 Pulse Rate [Left Radial] Respiratory Rate 16 16 17 Blood Pressure 147/71 Blood Pressure [Left Arm] O2 Sat by Pulse Oximetry 97 Oxygen Delivery Method Nasal Cannula Oxygen Flow Rate 12/20/22 12:03 12/20/22 12:08 12/20/22 12:13 Temperature Pulse Rate 72 75 74 Pulse Rate [Left Radial] Respiratory Rate 17 17 17 Blood Pressure 158/76 138/77 140/72 Blood Pressure [Left Arm] O2 Sat by Pulse Oximetry 96 96 97 Oxygen Delivery Method Nasal Cannula Nasal Cannula Nasal Cannula Oxygen Flow Rate 12/20/22 12:05 12/20/22 12:20 12/20/22 12:35 Temperature 98.7 F Pulse Rate Pulse Rate [Left Radial] 84 86 83 Respiratory Rate 18 18 18 Blood Pressure Blood Pressure [Left Arm] 144/65 136/65 130/64 O2 Sat by Pulse Oximetry 91 L 91 L 91 L Oxygen Delivery Method Oxygen Flow Rate 12/20/22 13:05 12/20/22 13:20 12/20/22 12:50 Temperature Pulse Rate Pulse Rate [Left Radial] 76 76 79 Respiratory Rate 18 18 18 Blood Pressure Blood Pressure [Left Arm] 126/60 123/63 131/61 O2 Sat by Pulse Oximetry 92 L 94 L 92 L Oxygen Delivery Method Oxygen Flow Rate 12/20/22 14:20 12/20/22 14:20 12/20/22 15:20 Temperature 98.4 F Pulse Rate Pulse Rate [Left Radial] 78 Respiratory Rate 18 18 18 Blood Pressure Blood Pressure [Left Arm] 145/72 O2 Sat by Pulse Oximetry 94 L Oxygen Delivery Method Oxygen Flow Rate 12/20/22 15:20 12/20/22 16:00 12/20/22 16:35 Temperature 97.8 F 97.8 F Pulse Rate Pulse Rate [Left Radial] 80 80 Respiratory Rate 18 18 18 Blood Pressure Blood Pressure [Left Arm] 133/66 133/66 O2 Sat by Pulse Oximetry 98 98 Oxygen Delivery Method Room Air Oxygen Flow Rate 2 12/20/22 16:20 12/20/22 17:20 12/20/22 18:08 Temperature 97.6 F Pulse Rate Pulse Rate [Left Radial] 64 62 Respiratory Rate 18 18 20 Blood Pressure Blood Pressure [Left Arm] 149/67 153/68 O2 Sat by Pulse Oximetry 94 L 94 L Oxygen Delivery Method Oxygen Flow Rate 12/20/22 19:00 12/20/22 19:08 12/20/22 20:00 Temperature 97.6 F Pulse Rate Pulse Rate [Left Radial] 66 Respiratory Rate 20 20 Blood Pressure Blood Pressure [Left Arm] 138/64 O2 Sat by Pulse Oximetry 98 Oxygen Delivery Method Room Air Nasal Cannula Oxygen Flow Rate 2 12/20/22 22:43 12/21/22 00:00 12/20/22 23:43 Temperature 98.4 F Pulse Rate Pulse Rate [Left Radial] 66 Respiratory Rate 20 20 20 Blood Pressure Blood Pressure [Left Arm] 148/68 O2 Sat by Pulse Oximetry 94 L Oxygen Delivery Method Room Air Oxygen Flow Rate 12/21/22 03:50 12/21/22 04:50 12/21/22 04:00 Temperature 97.6 F Pulse Rate Pulse Rate [Left Radial] 65 Respiratory Rate 20 20 18 Blood Pressure Blood Pressure [Left Arm] 122/58 O2 Sat by Pulse Oximetry 97 Oxygen Delivery Method Room Air Oxygen Flow Rate 12/21/22 08:19 12/21/22 07:00 12/21/22 08:00 Temperature 98.6 F Pulse Rate Pulse Rate [Left Radial] 57 L Respiratory Rate 20 18 Blood Pressure Blood Pressure [Left Arm] 120/58 O2 Sat by Pulse Oximetry 95 Oxygen Delivery Method Room Air Room Air Oxygen Flow Rate 12/21/22 09:19 12/21/22 12:20 12/21/22 12:00 Temperature 98.8 F Pulse Rate Pulse Rate [Left Radial] 63 Respiratory Rate 18 18 18 Blood Pressure Blood Pressure [Left Arm] 131/61 O2 Sat by Pulse Oximetry 95 Oxygen Delivery Method Room Air Oxygen Flow Rate 12/21/22 13:20 12/21/22 16:00 Temperature Pulse Rate Pulse Rate [Left Radial] Respiratory Rate 20 20 Blood Pressure Blood Pressure [Left Arm] O2 Sat by Pulse Oximetry Oxygen Delivery Method Oxygen Flow Rate Labs: Laboratory Last Values WBC 8.9 X10^3/uL (3.6-10.0) 12/21/22 07:00 RBC 4.24 X10^6/uL (4.7-6.0) L 12/21/22 07:00 Hgb 10.4 g/dL (13.5-18.0) L 12/21/22 07:00 Hct 32.9 % (42.0-54.0) L 12/21/22 07:00 MCV 77.7 fL (80.0-100.0) L 12/21/22 07:00 MCH 24.6 pg (27.0-34.0) L 12/21/22 07:00 MCHC 31.7 g/dL (33.0-35.0) L 12/21/22 07:00 RDW 17.4 % (11.6-16.5) H 12/21/22 07:00 Plt Count 225 X10^3/uL (150.0-450.0) 12/21/22 07:00 MPV 6.9 fL (7.4-11.0) L 12/21/22 07:00 Neut % (Auto) 76.7 % (42.0-75.0) H 12/21/22 07:00 Lymph % (Auto) 11.8 % (21.0-51.0) L 12/21/22 07:00 [place] % (Auto) 7.9 % (0.0-13.0) 12/21/22 07:00 Eos % (Auto) 1.2 % (0.9-2.9) 12/21/22 07:00 Baso % (Auto) 2.4 % (0.2-1.0) H 12/21/22 07:00 Neut # (Auto) 6.8 x10^3/uL (2.2-4.8) H 12/21/22 07:00 Lymph # (Auto) 1.0 X10^3/uL (1.3-2.9) L 12/21/22 07:00 [place] # (Auto) 0.7 x10^3/uL (0.3-0.8) 12/21/22 07:00 Eos # (Auto) 0.1 x10^3/uL (0.0-0.2) 12/21/22 07:00 Baso # (Auto) 0.2 X10^3/uL (0.0-0.1) H 12/21/22 07:00 Absolute Nucleated RBC 0.1 /100WBC 12/21/22 07:00 Sodium 130 mmol/L (136-145) L 12/21/22 07:00 Corrected Sodium 131 mmol/L (136-145) L 12/21/22 07:00 Potassium 3.6 mmol/L (3.5-5.1) 12/21/22 07:00 Chloride 95 mmol/L (98-107) L 12/21/22 07:00 Carbon Dioxide 28.3 mmol/L (21-32) 12/21/22 07:00 BUN 7 mg/dL (7-18) 12/21/22 07:00 Creatinine 0.74 mg/dL (0.70-1.30) 12/21/22 07:00 Est GFR (MDRD) Af Amer > 60 (>60) 12/21/22 07:00 Est GFR (MDRD) Non-Af > 60 (>60) 12/21/22 07:00 Glucose 121 mg/dL (65-99) H 12/21/22 07:00 POC Glucose (mg/dL) 101 mg/dL (65-99) H 12/21/22 10:59 Calcium 8.1 mg/dL (8.5-10.1) L 12/21/22 07:00 Corrected Calcium TNP 12/21/22 07:00 Total Bilirubin 0.50 mg/dL (0.2-1.0) 12/21/22 07:00 AST 174 Units/L (15-37) H 12/21/22 07:00 ALT 162 Units/L (12-78) H 12/21/22 07:00 Alkaline Phosphatase 67 Units/L (46-116) 12/21/22 07:00 Creatine Kinase 76 Units/L (39-308) 12/19/22 13:49 Troponin I High Sens 4.8 ng/L (4.0-60.0) 12/19/22 13:49 Total Protein 6.3 g/dL (6.4-8.2) L 12/21/22 07:00 Albumin 3.5 g/dL (3.4-5.0) 12/21/22 07:00 Globulin 2.8 g/dL (2.5-4.5) 12/21/22 07:00 Albumin/Globulin Ratio 1.3 Ratio (1.1-2.1) 12/21/22 07:00 Amylase 65 Units/L (25-115) 12/19/22 13:49 Lipase 197 Units/L (73-393) 12/19/22 13:49 Reason For Visit: CHOLECYSTITIS Discharge Date Discharge Date: 12/21/22 Discharge Diagnosis All Active Problems (Updated 12/19/22 @ 23:32 by Noble Alcantara) Acute cholecystitis (Acute) Diabetes 1.5, managed as type 2 (Acute) GE reflux (Acute) Hypercholesteremia (Acute) Plan of Treatment: Continue with present treatment and follow up plan. Pt is to keep follow up appointment as instructed and take medications as ordered. Discharge Medications Discharge Medications: No Known Allergies Allergy (Verified 12/19/22 13:43) CONTINUE taking the following medications apremilast 30 mg tablet (Otezla) 30 mg PO BID 12/19/22 [History] aspirin 81 mg tablet,delayed release 81 mg PO DAILY 12/19/22 [History] atorvastatin 40 mg tablet 40 mg PO HS 12/19/22 [History] clopidogrel 75 mg tablet 1 tab PO QDAY 12/19/22 [History] cyclobenzaprine 5 mg tablet 1 tab PO TID PRN 12/19/22 [History] fenofibrate 160 mg tablet 160 mg PO DAILY 12/19/22 [History] metformin 500 mg tablet 500 mg PO BID 12/19/22 [History] metoprolol tartrate 50 mg tablet 0.5 tab PO QDAY 12/19/22 [History] omeg3-epa 150 mg-dha 100 mg-fish oil-flaxseed oil 333 mg-E 61 unit cap 180 cap PO BID 12/19/22 [History] omeprazole 40 mg capsule,delayed release 40 mg PO DAILY 12/19/22 [History] primidone 250 mg tablet 1.5 tab PO BID 12/19/22 [History] topiramate 50 mg tablet 50 mg PO BID 12/19/22 [History] New Prescriptions ciprofloxacin HCl 500 mg tablet (Cipro) 500 mg PO BID #10 tabs 12/21/22 [Rx] oxycodone-acetaminophen 5 mg-325 mg tablet (Percocet) 1 tab PO Q6H PRN #20 tabs 12/21/22 [Rx] Discharge Disposition Assessment: see hospital course above Discharge Plan Discharge Plan Hospital Course: 72 yo male with history of diabetes and CAD , S/P CABG and Coronary stents with recent negative stress test who presented with RUQ pain and ultrasound consistent with cholelithiasis and acute cholectytitis . He was on IV antibiotics over night and the next AM underwent laparoscopic cholecystectomy for an acutely inflammed gallbladder. He has done well and will be discharged home on his usual medications plus Cipro 500 mg po BID and Perecocet , 5mg , i tablet q 6 Hr PRN pain. He is discharged with a Pranav Ravi drain in place and will see me in the office 12/24/2022. Patient Disposition: 01 HOME, SELF-CARE Condition: Stable Health Concerns: Post Hospitalization: new medications and changes needed to prevent readmission or further decline. Pt educated and given instructions on all concerns. Care Plan Goals: return to usual activity Plan of Treatment: Continue with present treatment and follow up plan. Pt is to keep follow up appointment as instructed and take medications as ordered. Assessment: see hospital course above Prescription drug monitoring program results: PDMP reviewed and no concerns identified Prescriptions: New oxycodone-acetaminophen [Percocet] 5-325 mg tablet 1 tab PO Q6H MDD 4 PRNQty: 20 0RF ciprofloxacin HCl [Cipro] 500 mg tablet 500 mg PO BID Qty: 10 0RF Continued atorvastatin 40 mg Tablet 40 mg PO HS metformin 500 mg Tablet 500 mg PO BID clopidogrel 75 mg tablet 1 tab PO QDAY omeprazole 40 mg Capsule,Delayed Release(Dr/Ec) 40 mg PO DAILY aspirin 81 mg Tablet,Delayed Release (Dr/Ec) 81 mg PO DAILY primidone 250 mg tablet 1.5 tab PO BID metoprolol tartrate 50 mg tablet 0.5 tab PO QDAY cyclobenzaprine 5 mg tablet 1 tab PO TID PRN topiramate 50 mg Tablet 50 mg PO BID fenofibrate 160 mg Tablet 160 mg PO DAILY [id number] oil-flax-E [phone] [id number] Capsule 180 cap PO BID Otezla 30 mg Tablet 30 mg PO BID Orders to Discharge Patient Discharge Orders: Discharge (Routine); Ordered 12/21/22 Ordered By: Noble Alcantara Follow ups/Referrals Follow ups/Referrals: BEATRIZ DOUGHERTY [Primary Care Provider] - 3 days Instructions Instructions: Laparoscopic Cholecystectomy, Care After Stand Alone Forms: Excuse From Work or School
[2022-12-21] MEDS ORDERED: LEVAQUIN PREMIX IV 750 MG 750 MG/150 ML BAG IV SCH (21:00)
== END 2022-12-21 17:20 | disposition home or self-care (01) ==
LOC: MED/SURG 13:28 → ER 13:28 → MED/SURG 18:07
PROVIDERS: ADMIT Surgery; ATTEND Surgery
DX: E11.65 Type 2 diabetes mellitus with hyperglycemia; R10.11 Right upper quadrant pain; R07.89 Other chest pain; R00.1 Bradycardia, unspecified; K80.00 Calculus of gallbladder with acute cholecystitis without obstruction; K21.9 Gastro-esophageal reflux disease without esophagitis; E78.2 Mixed hyperlipidemia